=== PATIENT | female | born 1965 | race American Indian/Alaskan Native ===

== ENCOUNTER 2020-12-16 10:11 | Emergency (ER) | payer OTHER ==
[2020-12-16 10:43] VITALS: BP 179/117
--- NOTE | 2020-12-16 12:05 | XRay Report ---
CHEST 2 VIEWS INDICATION / CLINICAL INFORMATION: cough. COMPARISON: None available. FINDINGS: SUPPORT DEVICES: None. HEART / MEDIASTINUM: No significant abnormality. LUNGS / PLEURA: Clear lungs. No significant pleural effusion. No pneumothorax. ADDITIONAL FINDINGS: No significant additional findings. IMPRESSION: 1. No acute abnormality of the chest. Signer Name: Luis Enrique Gonzalez MD Signed: 12/16/2020 12:01 PM Workstation Name: [id number]
--- NOTE | 2020-12-16 13:18 | Emergency Department Report ---
Minor Respiratory - HPI Chief Complaint: Upper Respiratory Infection Stated Complaint: CHEST PAINS Time Seen by Provider: 12/16/20 13:02 Pain Location: Throat, Nose, Chest Severity: moderate Minor Respiratory: Yes Able to Tolerate Fluids, Yes Cough, Yes Chest Pain, No Rhinorrhea, No Sore Throat, No Ear Pain, No Sick Contacts, No Hemoptysis, No Shortness of Breath, No Fever Other History: This is a 55-year-old healthy looking female in no respiratory distress who presents to ED complaining of sinus congestion and intermittent coughing for the past week. Patient states she been coughing intermittently so much that is causing her left-sided chest to hurt from coughing. She denies shortness of breath. Patient states she is taking hevs-mof-nhixeyr medications for allergies and is not working. Patient states that this happens every year where she gets really congested. Patient states she was just worried for the fact that symptoms have not resolved so she wanted to come and make sure that she did not have any respiratory illness. ED Review of Systems ROS: Stated complaint: CHEST PAINS Other details as noted in HPI Comment: All other systems reviewed and negative ED Past Medical Hx - Past Medical History Previous Medical History?: Yes Hx Hypertension: Yes - Medications Home Medications: Home Medications Medication Instructions Recorded Confirmed Last Taken Type Acetamin/Codeine 120-12Mg/5 ml 5 ml PO TID PRN #80 ml 12/16/20 Unknown Rx [Tylenol/Codeine] Benzonatate [Tessalon Perles] 100 mg PO Q8HR #30 capsule 12/16/20 Unknown Rx predniSONE [Deltasone] 20 mg PO QDAY #5 tab 12/16/20 Unknown Rx Minor Respiratory Exam - Exam General: Vital signs noted. No distress. Alert and acting appropriately. HEENT: Yes Moist Mucous Membranes, No Pharyngeal Erythema, No Pharyngeal Exudates, No Rhinorrhea, No Conjuctival Injection, No Frontal Tenderness, No Maxillary Tenderness Ear: Neither TM Bulge, Neither TM Erythema, Neither EAC Pain, Neither EAC Discharge Neck: Yes Supple, No Adenopathy Lungs: Yes Good Air Exchange, No Wheezes, No Ronchi, No Stridor, No Cough, No Labored Respirations, No Retractions, No Use of Accessory Muscles, No Other Abnormal Lung Sounds Heart: Yes Regular, No Murmur Abdomen: Yes Normal Bowel Sounds, No Tenderness, No Peritoneal Signs Skin: No Rash, No Edema Neurologic: Alert and oriented, no deficits. Musculoskeletal: Unremarkable. ED Course Vital Signs 12/16/20 12/16/20 10:42 10:43 Temperature 98.5 F Pulse Rate 91 H Respiratory 20 Rate Blood Pressure 179/117 [Right] O2 Sat by Pulse 96 Oximetry ED Medical Decision Making - Radiology Data Radiology results: report reviewed, image reviewed HEST 2 VIEWS INDICATION / CLINICAL INFORMATION: cough. COMPARISON: None available. FINDINGS: SUPPORT DEVICES: None. HEART / MEDIASTINUM: No significant abnormality. LUNGS / PLEURA: Clear lungs. No significant pleural effusion. No pneumothorax. ADDITIONAL FINDINGS: No significant additional findings. IMPRESSION: 1. No acute abnormality of the chest. Signer Name: Luis Enrique Gonzalez MD Signed: 12/16/2020 12:01 PM Workstation Name: [id number] Transcribed By: BORA Dictated By: Luis Enrique Gonzalez MD Electronically Authenticated By: Luis Enrique Gonzalez MD Signed Date/Time: 12/16/20 1201 - Medical Decision Making 29-year-old male presents with upper respiratory symptoms no fever during the ED stay. Chest x-ray shows no acute findings. Discussed with patient symptomatic relief with [id number] medications. Discussed with patient COVID-19 testing is appropriate and mandatory and should be done as soon as possible. Discussed with patient for 14-day quarantine if test is positive. Discussed worsening of symptoms patient should return to ED immediately. Patient oxygen saturation stayed at 98% on room air during exertion and after exertion. Discussed continue Tylenol as needed for fever and pain. Discussed increase fluids and diet intake. Discussed rest much needed. Discussed daily vitamin C for immune booster. Discussed follow-up with [facility] physician in 3-5 days. Patient verbally states she understands and will comply the following instructions and follow-up Vital signs stable. Patient is in no acute distress Critical care attestation.: If time is entered above; I have spent that time in minutes in the direct care of this critically ill patient, excluding procedure time. ED Disposition Clinical Impression: Bronchitis Disposition: DC-01 TO HOME OR SELFCARE Is pt being admited?: No Does the pt Need Aspirin: No Condition: Stable Instructions: Chronic Bronchitis (ED), Upper Respiratory Infection, Adult, [id number], How to Use a Dry Powder Inhaler, [id number] Additional Instructions: Make sure to follow up with the primary care physician as discussed. Take all your medications as you've been prescribed. If you have any worsening symptoms or develop new symptoms please return to ED immediately. Referrals: TIFF PICHARDO MD [Staff Physician] - 3-5 Days Forms: Accompanied Note, Work/School Release Form(ED) Time of Disposition: 13:41
--- NOTE | 2020-12-17 14:38 | Electrocardiograph Report ---
[facility] Test Date: 2020-12-16 Test Time: 10:19:37 Pat Name: DENNY AVILA Department: Room: Gender: F [employer] Houseman: abbe : 1965 Requested By: KYLEIGH FIORE Order Number: [id number] Reading MD: Korina Del Toro Measurements Intervals [place] Rate: 91 P: 49 OR: 138 QRS: 32 QRSD: 81 T: 51 QT: 360 QTc: 444 Interpretive Statements Sinus rhythm No previous ECG available for comparison Electronically Signed On 12-17-2020 14:38:40 EDT by Korina Del Toro
== END 2020-12-16 14:05 | disposition home or self-care (01) ==
LOC: ED 10:11
DX: J40 Bronchitis, not specified as acute or chronic (principal); I10 Essential (primary) hypertension; Z79.899 Other long term (current) drug therapy; Z88.8 Allergy status to other drugs, medicaments and biological substances
CPT/HCPCS: 71046; 93005